=== PATIENT | male | born 1995 | race Caucasian/White ===

== ENCOUNTER 2017-08-25 21:06 | Emergency (ER) | payer SELFPAY ==
[~2017-08-25] VITALS: Ht 177.8 cm; Wt 77.3 kg
[2017-08-25 21:12] VITALS: BP 130/75; PULSE 107; TEMP 98.8
== END 2017-08-25 22:00 | disposition left against medical advice (07) ==
LOC: COL.ER 21:06
DX: S91.111A Laceration without foreign body of right great toe without damage to nail, initial encounter (principal); W26.9XXA Contact with unspecified sharp object(s), initial encounter